=== PATIENT | female | born 1965 | race Caucasian/White ===

== ENCOUNTER → 2016-12-04 | Outpatient (CLI) | payer BC ==
[~2016-12-04] MED LIST: ALBU8.5H INH; FEXO180T94 PO; IBUP-1724 PO; MULT-669 PO; NORE-108; NORE-62 PO; PANT40TA27 PO; PRED20TA PO; [UNRECOGNIZED DRUG - CODE] PO
--- NOTE | 2016-12-04 16:49 | DI ---
Indication: ITS.REASON: R10.2 PELVIC AND PERINEAL PAIN PROCEDURE: US PELVIC NON OB W/TRANS VAG: Encounter: Initial Comparison: None FINDINGS: Transvaginal and transabdominal pelvic imaging was performed. The uterus measures 8 x 3.4 x 4.4 cm. The parenchyma is homogeneous without fibroids. The endometrial stripe measures mm in thickness. There is no evidence of focal endometrial mass. The right ovary appears normal. Left ovary was not visualized on this study. The right ovary measures 2.5 x 1.2 x 2.5 cm. There are no abnormal adnexal masses detected. IMPRESSION: Unremarkable pelvic sonogram. .
== END ==
LOC: IMA 10:33
PROVIDERS: ATTEND Family Medicine
DX: R10.2 Pelvic and perineal pain (principal)

== ENCOUNTER → 2016-12-15 | Outpatient (CLI) | payer BC ==
[~2016-12-15] MED LIST changes: -NORE-62 PO
--- NOTE | 2016-12-15 12:56 | DI ---
INDICATION: ITS.REASON: R05 COUGH PROCEDURE: CHEST 2-VIEWS UPRIGHT (PA \T\ LAT) Encounter: Initial COMPARISON: November 06, 2008 FINDINGS: The lungs are clear without evidence of focal abnormal airspace opacity. There is no pleural effusion or pneumothorax. The heart size, mediastinal contours and pulmonary vascularity are within normal limits. There is no significant skeletal abnormality. IMPRESSION: No acute cardiopulmonary disease. .
== END ==
LOC: IMA 11:47
PROVIDERS: ATTEND Family Medicine
DX: R05 Cough (principal)